=== PATIENT | male | born 1990 | race Hispanic/Latino ===

== ENCOUNTER 2019-01-28 23:50 | Emergency (ER) | payer OTHER ==
[2019-01-29 00:34] LABS: EOSINOPHILS % (AUTO) 3.5 % (0.0-8.0); HEMATOCRIT 41.2 % (42-54); LYMPHOCYTES % (AUTO) 27.1 % (21.0-51.0); MEAN CORPUSCULAR HGB CONC 33.9 g/dL (32.0-36.0); MEAN CORPUSCULAR VOLUME 91.4 fL (79-99); MONOCYTES % (AUTO) 8.9 % (3.0-13.0); NEUTROPHILS % (AUTO) 59.5 % (40.0-77.0); NUCLEATED RED BLOOD CELLS 0.1 % (0.0-0.19); PLATELET COUNT (AUTO) 258 K/uL (130-400); RED BLOOD CELL COUNT(AUTO) 4.51 MIL/uL (4.50-6.20); RED CELL DISTRIBUTION WIDTH 13.6 % (11.0-15.5); WHITE BLOOD COUNT (AUTO) 6.2 K/uL (4.8-10.8)
[2019-01-29 00:42] LABS: POTASSIUM 4.4 mmol/L (3.5-5.1)
[2019-01-29 00:47] LABS: ALBUMIN 4.1 g/dL (3.5-5.0); BILIRUBIN,TOTAL 0.9 mg/dL (0.2-1.0); TOTAL PROTEIN, SERUM 7.4 g/dL (6.0-8.3)
[2019-01-30 08:15] LABS: HEPATITIS A ANTIBODY IGM Negative (Negative); HEPATITIS B CORE IGM Negative (Negative); HEPATITIS Bs ANTIGEN SCREEN P Negative (Negative)
== END 2019-01-29 00:34 | disposition home or self-care (01) ==
LOC: EDH 23:50
DX: Z00.00 Encounter for general adult medical examination without abnormal findings (principal)
CPT/HCPCS: 36415; 80053; 80074; 85025; 86701; 87390

== ENCOUNTER 2022-01-14 01:05 | Observation (INO) | payer OTHER ==
[2022-01-14] MEDS ORDERED: MORPHINE 4 MG SYG IVP ONE (02:30)
[2022-01-14] MEDS ORDERED: FAMOTIDINE 20MG VIAL IV ONE (02:30)
[2022-01-14] MEDS ORDERED: ONDANSETRON 4MG INJ IVP ONE (02:30)
[2022-01-14] MEDS ORDERED: 0.9%NACL 1000ML 1,000 ML IV ONE (02:30)
[2022-01-14 02:52] LABS: BASOPHILS % (AUTO) 0.2 % (0.0-5.0); HEMATOCRIT 42.3 % (42-54); LYMPHOCYTES % (AUTO) 7.5 % (21.0-51.0); MEAN CORPUSCULAR HEMOGLOBIN 30.9 pg (27.0-33.0); MEAN CORPUSCULAR HGB CONC 34.5 g/dL (32.0-36.0); MEAN CORPUSCULAR VOLUME 89.4 fL (79-99); MONOCYTES % (AUTO) 3.7 % (3.0-13.0); NEUTROPHILS % (AUTO) 88.4 % (40.0-77.0); PLATELET COUNT (AUTO) 273 K/uL (130-400); RED BLOOD CELL COUNT(AUTO) 4.73 MIL/uL (4.50-6.20); WHITE BLOOD COUNT (AUTO) 8.7 K/uL (4.8-10.8)
[2022-01-14 03:14] LABS: ALBUMIN 3.7 g/dL (3.5-5.0); BILIRUBIN,TOTAL 0.5 mg/dL (0.2-1.0); CREATININE 0.6 mg/dL (0.5-1.5)
[2022-01-14 03:17] LABS: AMPHET/METH SCREEN,URINE POSITIVE (NEGATIVE); BARBITURATE SCREEN, URINE NEGATIVE (NEGATIVE); BENZODIAZEPINES SCREEN,URINE POSITIVE (NEGATIVE); CANNABINOID SCREEN,URINE POSITIVE (NEGATIVE); COCAINE SCREEN,URINE POSITIVE (NEGATIVE); OPIATE SCREEN,URINE POSITIVE (NEGATIVE); PHENCYCLIDINE SCREEN,URINE NEGATIVE (NEGATIVE)
[2022-01-14 03:27] LABS: POTASSIUM 2.7 mmol/L (3.5-5.1)
[2022-01-14] MEDS ORDERED: LIDOCAINE HCL-MPF 1% 2ML VIAL ONE (03:56)
[2022-01-14] MEDS ORDERED: POTASSIUM CHLORIDE 20 MEQ/100 ML BAG IV SCH (04:00)
[2022-01-14] MEDS ORDERED: POTASSIUM BICARB/CIT AC 25 MEQ TABLET.EFF PO ONE (05:30)
[2022-01-14] MEDS ORDERED: ONDANSETRON 4MG INJ ONE (05:49)
[2022-01-14 05:54] VITALS: BP 128/78
[2022-01-14 06:03] LABS: BILIRUBIN,URINE Negative (NEGATIVE); COLOR,URINE Yellow (YELLOW); GLUCOSE, URINE (UA) Negative (NEGATIVE); KETONES,URINE 40 mg/dL (NEGATIVE); LEUKOCYTE ESTERASE ,URINE Negative (NEGATIVE); NITRATE,URINE Negative (NEGATIVE); OCCULT BLOOD,URINE Trace (NEGATIVE); PROTEIN,URINE POS 1+ mg/dL (NEGATIVE); UROBILINOGEN,URINE 0.2 mg/dL (0.2-1.0)
[2022-01-14 06:04] LABS: APPEARANCE,URINE TURBID (CLEAR)
[2022-01-14 06:05] LABS: AMORPHOUS SEDIMENT,UR Many /LPF (None Seen); BACTERIA,URINE None Seen /HPF (None Seen); RBC,URINE None Seen /HPF (0-1); SQUAMOUS EPITHELIAL CELL,UR Rare /HPF (0-2); WBC,URINE None Seen /HPF (0-1)
[2022-01-14] MEDS ORDERED: 1/2 SODIUM CHLORIDE IV SCH (07:30)
[2022-01-14] MEDS ORDERED: LACTULOSE 20 GM/30 ML UDCUP PO PRN (07:30)
[2022-01-14] MEDS ORDERED: POTASSIUM CHLORIDE IV SCH (07:30)
[2022-01-14] MEDS ORDERED: DEXTROSE IV SCH (07:30)
[2022-01-14] MEDS ORDERED: ONDANSETRON 4MG INJ IV PRN (07:30)
[2022-01-14] MEDS ORDERED: 0.9%NACL 1000ML 1,000 ML IV SCH (07:30)
[2022-01-14] MEDS ORDERED: ACETAMINOPHEN 325 MG TAB PO PRN ×2 (07:30)
[2022-01-14 08:10] LABS: AMYLASE 48 U/L (25-115); CREATINE KINASE, TOTAL 238 U/L (21-232); MYOGLOBIN 75 ng/mL (10-92); PHOSPHORUS 3.8 mg/dL (2.5-4.9)
[2022-01-14 08:15] LABS: LIPASE < 50 U/L (114-286)
[2022-01-15] MEDS ORDERED: LACT1CAP81 PO (20:35)
[2022-01-15] MEDS ORDERED: ONDA8TAB12 SL (20:35)
[2022-01-15] MEDS ORDERED: FAMO-136 PO (20:35)
== END 2022-01-14 08:50 | disposition left against medical advice (07) ==
LOC: EDH 01:05 → EDHIP 01:06
PROVIDERS: ADMIT Internal Medicine; ATTEND Internal Medicine
DX: R11.2 Nausea with vomiting, unspecified (principal); E87.6 Hypokalemia; E86.0 Dehydration; E87.2 Acidosis; F11.10 Opioid abuse, uncomplicated; F15.10 Other stimulant abuse, uncomplicated; F12.10 Cannabis abuse, uncomplicated; F14.10 Cocaine abuse, uncomplicated; F13.10 Sedative, hypnotic or anxiolytic abuse, uncomplicated; F17.210 Nicotine dependence, cigarettes, uncomplicated; Z79.899 Other long term (current) drug therapy
CPT/HCPCS: 36415; 80053; 80305; 81001; 82150; 82550; 83690; 83735; 83874; 84100; 85025; 93005; 96365; 96366; 96375; 99284; G0378; J2270; J2405 ×2; J3480 ×3; J3490 ×2; J7030

== ENCOUNTER 2022-01-15 18:39 | Emergency (ER) | payer OTHER ==
[~2022-01-15] VITALS: Ht 172.7 cm; Wt 59.0 kg
[2022-01-15 19:30] LABS: BASOPHILS % (AUTO) 0.3 % (0.0-5.0); EOSINOPHILS % (AUTO) 0.1 % (0.0-8.0); HEMATOCRIT 50.8 % (42-54); LYMPHOCYTES % (AUTO) 14.2 % (21.0-51.0); MEAN CORPUSCULAR HGB CONC 33.5 g/dL (32.0-36.0); MEAN CORPUSCULAR VOLUME 89.6 fL (79-99); MONOCYTES % (AUTO) 12.6 % (3.0-13.0); NEUTROPHILS % (AUTO) 72.7 % (40.0-77.0); PLATELET COUNT (AUTO) 319 K/uL (130-400); RED BLOOD CELL COUNT(AUTO) 5.67 MIL/uL (4.50-6.20); RED CELL DISTRIBUTION WIDTH 12.9 % (11.0-15.5); WHITE BLOOD COUNT (AUTO) 7.9 K/uL (4.8-10.8)
[2022-01-15] MEDS ORDERED: ONDANSETRON 4MG INJ IVP ONE (19:30)
[2022-01-15] MEDS ORDERED: FAMOTIDINE 20MG VIAL IV ONE ×2 (19:30→20:51)
[2022-01-15] MEDS ORDERED: 0.9%NACL 1000ML 1,000 ML IV SCH (19:30)
[2022-01-15] MEDS ORDERED: KETOROLAC 30MG VIAL (30MG/ML) IVP ONE (19:30)
[2022-01-15 19:39] LABS: POTASSIUM 3.5 mmol/L (3.5-5.1)
[2022-01-15 19:45] LABS: ALBUMIN 4.2 g/dL (3.5-5.0); BILIRUBIN,TOTAL 0.8 mg/dL (0.2-1.0); TOTAL PROTEIN, SERUM 8.5 g/dL (6.0-8.3)
[2022-01-15] MEDS ORDERED: LACT1CAP81 PO (20:35)
[2022-01-15] MEDS ORDERED: FAMO-136 PO (20:35)
[2022-01-15] MEDS ORDERED: ONDA8TAB12 SL (20:35)
[2022-01-15] MEDS ORDERED: KETOROLAC 30MG VIAL (30MG/ML) ONE (20:51)
[2022-01-15] MEDS ORDERED: ONDANSETRON 4MG INJ ONE (20:51)
[2022-01-15 20:57] VITALS: BP 135/89
== END 2022-01-15 21:43 | disposition home or self-care (01) ==
LOC: EDH 18:39
DX: K52.9 Noninfective gastroenteritis and colitis, unspecified (principal); Z20.822 Contact with and (suspected) exposure to COVID-19; Z79.1 Long term (current) use of non-steroidal anti-inflammatories (NSAID)
CPT/HCPCS: 36415; 80053; 83690; 85025; 87635; 87804 ×2; 93005; 96361; 96374; 96375; 99284; C9803; J1885; J2405; J3490; J7030

== ENCOUNTER 2024-12-08 13:24 | Emergency (ER) | payer SELFPAY ==
[~2024-12-08] VITALS: Ht 172.7 cm; Wt 77.1 kg
[~2024-12-08 13:24] MED LIST: FAMO-136 PO; LACT1CAP81 PO; ONDA-245 SL
[2024-12-08 13:32] VITALS: BP 118/84; PULSE 98; RESP 16; TEMP 98.3
--- NOTE | 2024-12-08 13:39 | ERN ---
General Chief Complaint: Congestion Stated Complaint: WEAKNESS,SHAKING Time Seen by MD: 13:25 Source: patient History of Present Illness Initial Comments PATIENT IS A 34-YEAR-OLD GENTLEMAN COMING IN TO BE EVALUATED FOR URI SYMPTOMS. PER PATIENT HE HAS BEEN FEELING GENERALIZED BODY WEAKNESS NASAL CONGESTION AND WAS EXPOSED TO A URI BY A NEPHEW. PATIENT STATES THAT THIS HAS BEEN ONGOING FOR A COUPLE OF DAYS. Allergies: Coded Allergies: No Known Drug Allergies (Unverified Allergy, Unknown, 01/14/22) Home Meds Active Scripts Lactobacillus Combination No.4 (Probiotic) 1 Each Capsule, 1 EACH PO Q12H for 14 Days, #28 CAP Prov:LEON WALKER MD 01/15/22 Famotidine (Pepcid) 20 Mg Tablet, 20 MG PO Q12H PRN for 14, #28 TAB Prov:LEON WALKER MD 01/15/22 Ondansetron (Ondansetron Odt) 8 Mg Tab.rapdis, 8 MG SL Q4HPRN PRN for NAUSEA/VOMITING, #10 TAB 0 Refills Prov:LEON WALKER MD 01/15/22 Past Medical History Past Medical History: Schizophrenia, Other Medical History Other: BIPOLAR Past Surgical History: None ROS Dictation CONSTITUTIONAL: CHILLS, NO FEVER, NO WEAKNESS, NO DIAPHORESIS, NO MALAISE. HEAD/FACE: NO SIGNS OF TRAUMA. EENT: NO EYE PAIN, NO BLURRED VISION, NO TEARING, NO DOUBLE VISION, NO EAR PAIN, NO EAR DISCHARGE, NO NOSE PAIN, NO NASAL CONGESTION, NO THROAT PAIN, NO THROAT SWELLING, NO MOUTH PAIN. RESPIRATORY: NO COUGH, NO ORTHOPNEA, NO SOB, NO STRIDOR, NO WHEEZING. CARDIOVASCULAR: NO CHEST PAIN, NO EDEMA, NO PALPITATIONS, NO SYNCOPE. GASTROINTESTINAL/ABDOMINAL: NO ABDOMINAL PAIN, NO CONSTIPATION, NO DIARRHEA, NO NAUSEA, NO VOMITING. GENITOURINARY: NO ABNORMAL DISCHARGE, NO DYSURIA, NO FREQUENT URINATION, NO HEMATURIA. NO COMPLAINTS OF PAIN IN THE GENITALS. MUSCULOSKELETAL: NO BACK PAIN, NO GOUT, NO JOINT PAIN, NO JOINT SWELLING, NO MUSCLE PAIN, NO MUSCLE STIFFNESS, NO NECK PAIN. INTEGUMENTARY: NO CHANGE IN COLOR, NO CHANGE IN HAIR/NAILS, NO DRYNESS, NO LESION, NO LUMPS, NO RASH. NEUROLOGICAL/PSYCH: NO ANXIETY, NOT DEPRESSED, NO EMOTIONAL PROBLEM, NO HEADACHE, NO NUMBNESS, NO PRE-EXISTING DEFICIT, NO HISTORY OF SEIZURES, NO TREMORS, NO WEAKNESS. HEMATOLOGIC/LYMPHATIC: NOT ANEMIC, NO HISTORY OF BLOOD CLOTS, NO APPARENT BLEEDING, NO BRUISING, GLANDS NOT SWOLLEN. ALL SYSTEMS NEGATIVE, EXCEPT NOTED. Physical Exam Physical Exam Dictation VITAL SIGNS: REVIEWED. GENERAL APPEARANCE: ALERT, ORIENTED X3, NO ACUTE DISTRESS, OBESE. HEAD AND FACE: NON-TRAUMATIC. EYES: PERRL, PINK CONJUNCTIVAS, EYELID NO TRAUMA, ANTERIOR CHAMBER CLEAR. EARS: PINNAS INTACT AND NO SIGNS OF TRAUMA OR ERYTHEMA. EAR CANALS CLEAR AND NO DISCHARGE. TMS NO ERYTHEMA. NOSE: NO DISCHARGE, NO BLEEDING. OROPHARYNX: MOUTH NORMAL, TEETH NO CARIES, TONGUE PINK. PHARYNX CLEAR, NO ERYTHEMA. TONSILS NO EXUDATES, NO ABSCESSES NOTED. MUCOUS MEMBRANE MOIST. NECK: SUPPLE, NON-TENDER, NO THYROMEGALY, NO MASSES, NO JVD, NO BRUITS. BREAST: DEFERRED. CHEST: NO TENDERNESS, NO CREPITUS, NO PARADOXICAL MOVEMENT, NO RETRACTIONS. LUNGS: CLEAR, WELL-VENTILATED, SYMMETRIC, NO RALES, NO WHEEZING, NO RHONCHI, NO STRIDOR, GOOD BREATH SOUNDS BILATERALLY. HEART: REGULAR RATE, REGULAR RHYTHM, NO MURMUR, NO GALLOPS. VASCULAR: NO PERIPHERAL EDEMA. ABDOMEN: SOFT, POSITIVE BOWEL SOUNDS, NONDISTENDED, NO GUARDING, NONTENDER, NO REBOUND, NO MASSES NO HEPATOMEGALY, NO SPLENOMEGALY, NO PAYAN'S SIGN, NO HERNIAS. RECTAL: DEFERRED. GENITAL: DEFERRED. NEUROLOGICAL: NORMAL SPEECH, GROSS MOTOR FUNCTION INTACT, GROSS SENSORY FUNCTION INTACT. MUSCULOSKELETAL: NECK NONTENDER, FULL RANGE OF MOTION, BACK NONTENDER, FULL RANGE OF MOTION. EXTREMITIES: NONTENDER, FULL RANGE OF MOTION. SKIN: COLOR PINK, DRY, NO TURGOR, NO RASH, NO LACERATIONS, NO ABRASIONS, NO CONTUSIONS. LYMPHATICS: DEFERRED. Results Laboratory and Microbiology Lab and Micro Result Laboratory Tests Test 12/08/24 13:36 Influenza Type A Antigen Negative For Type A Influenza Type B Antigen Negative For Type B SARS-CoV-2, RNA, NAAT NEGATIVE SARS CoV-2 Labs Reviewed?: Yes MDM 34-YEAR-OLD GENTLEMAN COMING IN TO BE EVALUATED FOR URI SYMPTOMS. WAS NOTIFIED BY NURSING STAFF THAT PATIENT ELOPED WITHOUT NOTIFYING ANYBODY. ED Course Orders Procedure Category Date Status Time Covid Rna Naat LAB 12/08/24 Complete 13:27 Influenza Type A & B, LAB 12/08/24 Complete Rapid 13:27 Rapid (Group A Strep) LAB 12/08/24 Logged 14:30 Vital Signs Date Time Temp Pulse Resp B/P (MAP) Pulse Ox O2 Delivery O2 Flow Rate FiO2 12/08/24 13:32 98.2 98 16 118/84 98 Room Air 0 DX & DISP Disposition: AMA Departure Impression: Primary Impression: URI (upper respiratory infection) Condition: Against Medical Advice Additional Instructions: WAS ADVISED BY NURSING STAFF THE PATIENT WAS NOT LOBBY WHEN THEY WERE CALLING AND WAS NOTIFIED THAT HE ELOPED WITHOUT NOTIFYING ANYBODY Referrals: SELF,REFERRAL (PCP) OPHELIA FUNEZ MD Time of Disposition: 17:04 BARBY ALEGRE MD Dec 08, 2024 13:39
[2024-12-08 13:58] LABS: SARS-CoV-2, RNA, NAAT NEGATIVE SARS CoV-2 (NEGATIVE)
[2024-12-08 14:04] LABS: INFLUENZA TYPE A Negative For Type A (NEGATIVE); INFLUENZA TYPE B Negative For Type B (NEGATIVE)
--- NOTE | 2024-12-08 16:42 | NUR ---
CALLED OUT IN LOBBY BUT NO ANSWER
--- NOTE | 2024-12-08 17:04 | NUR ---
ED MD ALEGRE INFORMED NO ANSWER WHEN PT CALLED
--- NOTE | 2024-12-08 17:04 | NUR ---
PT CALLED AGAIN W/NO ANSWER
== END 2024-12-08 17:09 | disposition left against medical advice (07) ==
LOC: EDH 13:24
DX: J06.9 Acute upper respiratory infection, unspecified (principal); F20.9 Schizophrenia, unspecified; Z20.822 Contact with and (suspected) exposure to COVID-19
CPT/HCPCS: 87635; 87804; 99283